=== PATIENT | female | born 1985 | race Caucasian/White ===

== ENCOUNTER 2016-09-22 21:47 | Emergency (ER) | payer OTHER ==
[2016-09-22 22:15] VITALS: BP 136/78
--- NOTE | 2016-09-22 22:50 | UC ---
Respiratory Complaint HPI - HPI Summary HPI Summary: cough and chest tightness that is getting better using here albuterol---is not using her steroid inhaler---no fevers no sputum - History of Current Complaint Hx Obtained From: Patient Hx Last Menstrual Period: 1 MONTH AGO ?: No Onset/Duration: Sudden Onset, Lasting Days - 3, Still Present Timing: Constant Severity Initially: Moderate Severity Currently: Mild Character: Cough: Nonproductive Aggravating Factors: Nothing Alleviating Factors: Bronchodilator Associated Signs And Symptoms: Positive: Pleuritic Chest Pain <Megan Troncoso - Last Filed: 09/22/16 23:06> <Valerie Jewell - Last Filed: 09/23/16 07:23> - History of Current Complaint Chief Complaint: UCRespiratory Stated Complaint: COLD,PAINFUL BREATHING,TIGHTNESS,COUGH Time Seen by Provider: 09/22/16 22:15 - Allergies/Home Medications Allergies/Adverse Reactions: Allergies Allergy/AdvReac Type Severity Reaction Status Date / Time Sulfa Antibiotics Allergy Severe Nausea Verified 10/13/15 18:56 PMH/Surg Hx/FS Hx/Imm Hx Previously Healthy: No Respiratory History Of: Reports: Asthma - Surgical History Surgical History: None - Family History Known Family History: Positive: Hypertension Negative: Cardiac Disease, Diabetes, Blood Disorder - Social History Occupation: Employed Full-time Lives: With Family Alcohol Use: Occasionally Substance Use Type: None Smoking Status (MU): Current Some Day Smoker Type: Cigarettes Cessation Counseling: Patient Advised to Stop <Megan Troncoso - Last Filed: 09/22/16 23:06> Review of Systems Constitutional: Negative Skin: Negative Eyes: Negative ENT: Negative Respiratory: Cough Cardiovascular: Chest Pain Gastrointestinal: Negative Genitourinary: Negative Motor: Negative Neurovascular: Negative Musculoskeletal: Negative Neurological: Negative Psychological: Negative All Other Systems Reviewed And Are Negative: Yes <Megan Troncoso - Last Filed: 09/22/16 23:06> Physical Exam Triage Information Reviewed: Yes Appearance: Well-Appearing, No Pain Distress, Well-Nourished Vital Signs: Initial Vital Signs Temp 98.7 F 09/22/16 22:08 Pulse 96 09/22/16 22:08 Resp 18 09/22/16 22:08 BP 136/78 09/22/16 22:08 Pulse Ox 100 09/22/16 22:08 Vital Signs Reviewed: Yes Eye Exam: Normal Eyes: Positive: Conjunctiva Clear ENT Exam: Normal ENT: Positive: Normal ENT inspection, Hearing grossly normal. Negative: Nasal congestion, Nasal drainage, Trismus, Muffled/hoarse voice Dental Exam: Normal Neck exam: Normal Neck: Positive: Supple, Nontender, No Lymphadenopathy Respiratory Exam: Normal Respiratory: Positive: Chest non-tender, Lungs clear, Normal breath sounds, No respiratory distress, No accessory muscle use Cardiovascular Exam: Normal Cardiovascular: Positive: RRR, No Murmur, Pulses Normal, Brisk Capillary Refill Musculoskeletal Exam: Normal Musculoskeletal: Positive: Strength Intact, ROM Intact, No Edema Neurological Exam: Normal Neurological: Positive: Alert, Muscle Tone Normal Psychological Exam: Normal Skin Exam: Normal <Megan Troncoso - Last Filed: 09/22/16 23:06> Vital Signs: Initial Vital Signs Temp 98.7 F 09/22/16 22:08 Pulse 96 09/22/16 22:08 Resp 18 09/22/16 22:08 BP 136/78 09/22/16 22:08 Pulse Ox 100 09/22/16 22:08 <Valerie Jewell - Last Filed: 09/23/16 07:23> UC Diagnostic Evaluation - Laboratory O2 Sat by Pulse Oximetry: 100 <Megan Troncoso - Last Filed: 09/22/16 23:06> Respiratory Course/Dx - Course Course Of Treatment: start steriod MDI, Short course of Prednisone, may use a/b in 5-7 days should sx worsen or fail to improve, add Antihistamine daily, follow with pcp - Differential Dx/Diagnosis Differential Diagnosis/HQI/PQRI: Bronchitis, Laryngitis, Lower Resp Infection, Sinusitis Provider Diagnoses: Acute exacebation of Bronchospasm, nicotine dependant <Megan Troncoso - Last Filed: 09/22/16 23:06> Discharge <Megan Troncoso - Last Filed: 09/22/16 23:06> <Valerie Jewell - Last Filed: 09/23/16 07:23> - Discharge Plan Condition: Stable Disposition: HOME Prescriptions: Albuterol HFA INHALER* [Ventolin HFA Inhaler*] 2 puff INH Q4H PRN #1 mdi PRN Reason: cough/chest tightness Azithromycin TAB* [Zithromax TAB (Z-MIRNA) 250 mg #6 tabs] 2 tab PO .TODAY, THEN 1 DAILY #1 mirna predniSONE TAB* [Deltasone TAB*] 50 mg PO DAILY #4 tab Patient Education Materials: Bronchospasm (ED), Acute Bronchitis (ED) Referrals: Sarah Jewell MD [Primary Care Provider] - 1 Week Attestation Statement User Type: Provider - I was available for consult. This patient was seen by the JONNY. The patient was not presented to, seen by, or examined by me. -Jeffery <Valerie Jewell - Last Filed: 09/23/16 07:23>
== END 2016-09-22 22:55 | disposition home or self-care (01) ==
LOC: UCEAST 21:47
DX: J98.01 Acute bronchospasm (principal); Z88.2 Allergy status to sulfonamides; Z72.0 Tobacco use
CPT/HCPCS: 99212; G0463

== ENCOUNTER 2020-10-20 16:37 | Inpatient (IN) ==
[2020-10-20 17:19] LABS: ABS Lymphocytes 1.5 10^3/ul (1.0-4.8); ABS Monocytes 0.7 10^3/ul (0-0.8); ABS Neutrophils 5.9 10^3/ul (1.5-7.7); Eosinophil % 0.4 %; Hematocrit 34 % (35-47); Hemoglobin 11.6 g/dL (12.0-16.0); Lymphocyte % 17.9 %; Mean Corpuscular HGB Conc 34 g/dL (31-36); Mean Corpuscular Hemoglobin 30 pg (27-31); Mean Corpuscular Volume 90 fL (80-97); Mean Platelet Volume 10.7 fL (7.4-10.4); Platelet Count 154 10^3/uL (150-450); Red Blood Count 3.81 10^6 /uL (3.70-4.87); Red Cell Distribution Width 15 % (10-15); White Blood Count 8.2 10^3/uL (3.5-10.8)
[2020-10-20 17:33] LABS: Urine Appearance Cloudy; Urine Bilirubin Negative (Negative); Urine Blood Negative (Negative); Urine Color Straw; Urine Glucose Negative (Negative); Urine Ketones Negative (Negative); Urine Nitrite Negative (Negative); Urine Protein Negative (Negative); Urine Specific Gravity 1.003 (1.002-1.030); Urine Urobilinogen Negative (Negative)
[2020-10-20 17:40] LABS: Albumin 3.3 g/dL (3.2-5.2); Albumin/Globulin Ratio 1.1 (1-3); Calcium 9.2 mg/dL (8.6-10.3); EGFR African American 76.8 (>60); EGFR Non-African American 63.5 (>60); Globulin 3.1 g/dL (2-4); Potassium 3.9 mmol/L (3.5-5.0); Total Bilirubin 0.3 mg/dL (0.2-1.0); Total Protein 6.4 g/dL (6.4-8.9); Uric Acid 5.6 mg/dL (2.3-6.6)
[2020-10-20 17:42] LABS: Urine Bacteria 1+ (Absent); Urine Red Blood Cell 1+(3-5/hpf) (Absent); Urine Squamous Epithelial Cell Present (Absent); Urine White Blood Cell 1+(6-10/hpf) (Absent)
[2020-10-20 17:46] LABS: Urine Benzodiazepine Screen None Detected (None Detect); Urine Cannabinoids Screen None Detected (None Detect); Urine Opiates Screen None Detected (None Detect)
[2020-10-20] MEDS ORDERED: Magnesium Sulf 4 GM/100 ML IV 4,000 MG/100 ML BAG IVPB ONE (19:18)
[2020-10-20] MEDS ORDERED: Magnesium Sulfate OB PREMIX 40 GM/1,000 ML BAG IVPB SCH (20:00)
[2020-10-20] MEDS ORDERED: Lactated Ringers 1000 ml BAG 1,000 ML IV SCH ×2 (20:00→23:45)
[2020-10-20] MEDS ORDERED: ceFOXitin 2 GM IVPREMIX 2 GM/50 ML BAG IVPB ONE (21:39)
[2020-10-20] MEDS ORDERED: fentaNYL 100 mcg/2 ml 50 MCG/ML VIAL ONE (21:59)
[2020-10-20] MEDS ORDERED: Morphine PF AMP (0.5MG/ML) 5 MG/10 ML AMP ONE (22:00)
[2020-10-20] MEDS ORDERED: Sodium Citrate/Citric Acid LIQ 15 ML UDC ONE (22:12)
[2020-10-20] MEDS ORDERED: Phenylephrine 40 mcg/mL 10mL (400mcg) SYRINGE ONE ×2 (22:44→22:55)
[2020-10-20 23:02] LABS: Urine Appearance Cloudy; Urine Bilirubin Negative (Negative); Urine Blood 1+ (Negative); Urine Color Yellow; Urine Glucose Negative (Negative); Urine Ketones 1+ (Negative); Urine Nitrite Negative (Negative); Urine Protein Negative (Negative); Urine Specific Gravity 1.011 (1.002-1.030); Urine Urobilinogen Negative (Negative)
[2020-10-20] MEDS ORDERED: Oxytocin 10 UNITS/ML 1 ML VIAL ONE (23:11)
[2020-10-20 23:15] LABS: Urine Bacteria 2+ (Absent); Urine Red Blood Cell Absent (Absent); Urine Squamous Epithelial Cell Present (Absent); Urine White Blood Cell 3+(>20/hpf) (Absent)
[2020-10-20] MEDS ORDERED: Witch Hazel PAD JAR TOPICAL PRN (23:57)
[2020-10-21] MEDS ORDERED: Naloxone 0.4 mg VIAL 0.4 mg/ml 1 ml VIAL IV PRN (00:02)
[2020-10-21] MEDS ORDERED: DiMENhydriNATE IV 50 mg/ml 1 ml VIAL IV PUSH PRN (00:02)
[2020-10-21] MEDS: oxyCODONE/Acetamin 5/325 mg TAB PO PRN ×3 (01:12→09:20)
[2020-10-21 07:59] LABS: ABS Lymphocytes 1.3 10^3/ul (1.0-4.8); ABS Monocytes 1.1 10^3/ul (0-0.8); ABS Neutrophils 12.8 10^3/ul (1.5-7.7); Eosinophil % 0.1 %; Hematocrit 30 % (35-47); Hemoglobin 10.4 g/dL (12.0-16.0); Lymphocyte % 8.4 %; Mean Corpuscular HGB Conc 35 g/dL (31-36); Mean Corpuscular Hemoglobin 31 pg (27-31); Mean Corpuscular Volume 89 fL (80-97); Mean Platelet Volume 10.5 fL (7.4-10.4); Platelet Count 134 10^3/uL (150-450); Red Blood Count 3.36 10^6 /uL (3.70-4.87); Red Cell Distribution Width 15 % (10-15); White Blood Count 15.2 10^3/uL (3.5-10.8)
[2020-10-21 08:24] LABS: Albumin 2.8 g/dL (3.2-5.2); Calcium 7.8 mg/dL (8.6-10.3); Potassium 4.3 mmol/L (3.5-5.0); Total Bilirubin 0.3 mg/dL (0.2-1.0)
[2020-10-21 08:30] LABS: Albumin/Globulin Ratio 1.1 (1-3); EGFR African American 80.5 (>60); EGFR Non-African American 66.6 (>60); Globulin 2.6 g/dL (2-4); Total Protein 5.4 g/dL (6.4-8.9)
[2020-10-23 07:53] VITALS: BP 146/74
== END 2020-10-23 12:05 | disposition home or self-care (01) | DRG 540 ==
LOC: MCHOBOUT 16:37 → MCHOB 17:28
PROVIDERS: ADMIT Midwife; ATTEND Obstetrics & Gynecology